=== PATIENT | male | born 1955 | race Caucasian/White ===

== ENCOUNTER 2018-04-02 10:15 | Outpatient (CLI) | payer MEDICARE, MEDICAID, SELFPAY ==
--- NOTE | 2018-04-02 10:16 | DI.REPORT_ITS ---
SYMPTOM/DIAGNOSIS: EXTENSIVE BACK PAIN, S/P FALL THORACIC SPINE: Frontal and lateral views were obtained. The study is somewhat limited due to patient body habitus and positioning. There does appear to be a mild right convex scoliosis of the upper lumbar spine , the apex of which is at T-4. Mild to moderate degenerative changes are present throughout the thoracic spine. No acute fracture or subluxation is seen. The paraspinal lines are intact. IMPRESSION: 1. Somewhat limited examination of the thoracic spine due to patient body habitus and positioning. 2. No acute fracture or subluxation is appreciated. If there is continued clinical concern a CT scan may be considered. CERVICAL SPINE: Odontoid, AP lateral and bilateral oblique views. The base of the odontoid is not well visualized due to overlying teeth. There does appear to be normal alignment of the lateral masses. There is normal alignment of the cervical spine. No acute fractures or subluxations are seen. A Swimmer's view was obtained and is included on the x-ray of the thoracic spine performed the same day. Mild to moderate degenerative changes are present throughout the cervical spine. These findings include disc space narrowing and end plate osteophytes. Hypertrophic changes are seen at the facets throughout particularly at the C3-4 and C4-5 levels. There is narrowing of the neural foramen on the right at C4-5. IMPRESSION: No acute fractures or subluxations. 2. Moderate degenerative changes in the cervical spine. LUMBAR SPINE: AP lateral and bilateral oblique views of the lumbar spine. There are 5 lumbar type vertebral bodies. There is normal alignment. No spondylolysis or spondylolisthesis seen. There is disc space narrowing at L1, L2. End plate osteophytes are present throughout the lumbar spine particularly at L1 , L2 and L3-L4. There are degenerative changes of the facets throughout the lumbar spine. Vascular calcifications are seen of the abdominal aorta. IMPRESSION: 1. No acute fractures or subluxations of the lumbar spine. 2. Moderate degenerative changes in the lumbar spine.
== END 2018-04-02 10:16 ==
PROVIDERS: PCP Family Medicine; Visit Provider Nurse Practitioner Family
DX: M54.2 Cervicalgia (principal); M54.6 Pain in thoracic spine; M50.321 Other cervical disc degeneration at C4-C5 level; M51.36 Other intervertebral disc degeneration, lumbar region
CPT/HCPCS: 72050; 72072; 72110